=== PATIENT | male | born 1975 | race Caucasian/White ===

== ENCOUNTER 2016-11-07 17:36 | Inpatient (IN) ==
[2016-11-07] MEDS ORDERED: ASPIRIN PO STA (18:16)
[2016-11-07] MEDS ORDERED: TYLENOL PO ONE (18:35)
[2016-11-07] MEDS ORDERED: TYLENOL ONE (18:37)
--- NOTE | 2016-11-07 18:37 | PROVIDER DOCUMENTATION ---
HPI-Chest Pain - General Chief Complaint: Chest Pain Stated Complaint: cp/sob Time Seen by Provider: 11/07/16 18:15 Allergies/Adverse Reactions: Patient Allergies Allergy/AdvReac Type Severity Reaction Status Date / Time clopidogrel [From Plavix] AdvReac Unknown Verified 11/07/16 17:50 warfarin [From Coumadin] AdvReac Unknown Verified 11/07/16 17:50 Home Medications: Home Medication List Medication Instructions Recorded Confirmed Last Taken Type NK [No Home Medications] 11/07/16 11/07/16 Unknown History - History of Present Illness-CP Nature of Presenting Problem: Pt comes in after having 3 days of CP. He has a PMH of CVA and seizure and doesn 't take any of his medications. He states that plavix and coumadin cause suicidal ideation. 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 He did say he will take tylenol for his SRIVASTAVA now but doesn't usually. His pain is midsternal and does not radiate to his back, neck of jaws. Review of Systems - Adult - REVIEW OF SYSTEMS - ADULT Constitutional: reports: no symptoms reported. denies: chills, fever, night sweats, weight gain, weight loss Eyes: reports: no symptoms reported. denies: discharge, dry eyes, decreased vision, blurred vision, double vision, eye pain, redness Ears, Nose, Mouth & Throat: reports: no symptoms reported. denies: ear discharge, hearing loss, tinnitus, epistaxis, nose pain, mouth/dental pain, mouth swelling, hoarseness, throat swelling Cardiovascular: reports: see HPI, chest pain. denies: heart murmur, irregular heart rate, orthopnea, palpitations, poor circulation, PND, syncope Respiratory: reports: no symptoms reported. denies: chronic cough, cough, dyspnea on exertion, hemoptysis, pleurisy, shortness of breath, wheezing Gastrointestinal: reports: no symptoms reported. denies: abdominal pain, hematemesis, constipation, diarrhea, frequent heartburn, nausea, poor appetite, rectal bleeding, vomiting Genitourinary: reports: no symptoms reported. denies: dysuria, discharge, frequency, flank pain, hematuria, incontinence, urinary retention, urgency Musculoskeletal: reports: no symptoms reported. denies: bone pain, back pain, joint pain, joint swelling, muscle aches, muscle weakness, neck pain Integumentary: reports: no symptoms reported. denies: hives, hair loss, itching , nail changes, rash, skin thickening Neurological: reports: see HPI, headache/migraines. denies: ataxia, dizziness/ vertigo, loss of balance, paresthesia, seizure, slurred speech, syncope, tremors Psychiatric: reports: no symptoms reported. denies: anxiety, anti-depressant use, depression, emotional problems, insomnia, panic attacks, suicidal thoughts Endocrine: reports: no symptoms reported. denies: change in skin pigment, excessive sweating, goiter, cold intolerance, heat intolerance, increased thirst , polyuria Hematologic/Lymphatic: reports: no symptoms reported. denies: blood clots, easy bruising, lymphedema, prolonged bleeding, transfusions Allergic/Immunologic: reports: no symptoms reported. denies: allergic reactions , allergic rhinitis, asthma, eczema, food allergy, frequent infections, hay fever, hives, positive PPD, other All Other Systems: Reviewed and Negative Past History - Adult - PAST MEDICAL HISTORY-ADULT Review of Records: reports: Old Records Reviewed, Nursing Assessment Review, Medications Reviewed, Social history reviewed & non-contributory. Major Childhood Illnesses: reports: denies history Cardiovascular: reports: denies history, CAD, HTN Respiratory: reports: denies history Gastrointestinal: reports: denies history Obstetrical/Gynecological: reports: denies history Genitourinary: reports: denies history Musculoskeletal: reports: denies history Neurological: reports: CVA Endocrine/Immune: reports: denies history Other Conditions: reports: denies history - PRIOR SURGERIES/PROCEDURES Surgical/Procedure History: reports: reviewed, not pertinent - IMMUNIZATION STATUS Childhood Immunizations: See Nurse Assessment Flu Vaccine: See Nurse Assessment - FAMILY HISTORY Family History: reviewed, not pertinent - SOCIAL HISTORY Smoking: chew Provider spent 3-5 mins advising pt. on dangers of tobacco.: Discussed manners to quit use, and f/u contacts for add'l counseling. Alcohol Use Frequency: occasionally Number of drinks per typical drinking period:: 2 drinks Living Situation: family Physical Exam-General - PHYSICAL EXAM-ADULT Initial Vital Signs Reviewed: Yes - CONSTITUTIONAL General Appearance: appears well, alert, no apparent distress - EYES Eyes: PERRL/EOMI, pink conjunctivae - HEAD, EARS, NOSE, MOUTH & THROAT HENMT: normocephalic/atraumatic, moist mucous membranes, normal ENT inspection - NECK Neck: non-tender, full range of motion, supple - RESPIRATORY Respiratory: chest non-tender, lungs clear, decreased breath sounds - CARDIOVASCULAR Cardiovascular: normal peripheral pulses, regular rate, rhythm, no edema, no gallop, no JVD, no murmur - GASTROINTESTINAL (ABDOMEN) Abdominal Exam: normal bowel sounds, non tender, soft - MUSCULOSKELETAL Back Exam: normal inspection, no CVA tenderness Extremity: normal range of motion, non-tender, no pedal edema, no calf tenderness, normal capillary refill Peripheral Pulses: dorsalis-pedis (R): 2+, dorsalis-pedis (L): 2+ - SKIN Integumentary: normal color, normal turgor, warm/dry - NEUROLOGIC Neurologic: him manager II-XII nml as tested, grossly normal - PSYCHIATRIC Psych/Mental Status: normal mood/affect, normal thought content, normal thought process, oriented x 3 Progress - PLAN OF CARE/RESULTS Progress/Plan/Lab Results: Vital Signs - 8 hr 11/07/16 17:44 Temperature 98.3 F Pulse Rate 84 Respiratory Rate 16 Blood Pressure 150/87 O2 Sat by Pulse Oximetry 98 Laboratory Results - last 24 hr 11/07/16 11/07/16 11/07/16 18:30 18:30 18:30 WBC 9.72 RBC 4.58 L Hgb 14.5 Hct 41.5 L MCV 90.6 MCH 31.7 H MCHC 34.9 RDW Std Deviation 12.2 Plt Count 204 MPV 10.1 Immature Gran % (Auto) 0.2 Neut % (Auto) 72.4 Lymph % (Auto) 18.5 L [place] % (Auto) 6.9 Eos % (Auto) 1.3 Baso % (Auto) 0.7 Immature Gran # (Auto) 0.02 Neut # (Auto) 7.03 H Lymph # (Auto) 1.80 [place] # (Auto) 0.67 H Eos # (Auto) 0.13 Baso # (Auto) 0.07 PT INR PTT (Actin FS) D-Dimer 0.18 Sodium 140 Potassium 3.8 Chloride 103 Carbon Dioxide 25 Anion Gap 12 BUN 14 Creatinine 0.9 Estimated GFR/1.73 m2 > 60 BUN/Creatinine Ratio 16 Glucose 100 Calculated Osmolality 280 Calcium 8.6 L Magnesium 2.0 Total Bilirubin 0.31 AST 21 ALT 21 Alkaline Phosphatase 57 Creatine Kinase 311 H Creatine Kinase Index 1.7 CK-MB (CK-2) 5.34 H Troponin T Toj-X-Mvsdfugyvyx Pept Total Protein 6.2 L Albumin 3.9 Globulin 2.3 Albumin/Globulin Ratio 1.7 11/07/16 11/07/16 11/07/16 18:30 18:30 18:30 WBC RBC Hgb Hct MCV MCH MCHC RDW Std Deviation Plt Count MPV Immature Gran % (Auto) Neut % (Auto) Lymph % (Auto) [place] % (Auto) Eos % (Auto) Baso % (Auto) Immature Gran # (Auto) Neut # (Auto) Lymph # (Auto) [place] # (Auto) Eos # (Auto) Baso # (Auto) PT 10.3 INR 0.98 PTT (Actin FS) 25.5 D-Dimer Sodium Potassium Chloride Carbon Dioxide Anion Gap BUN Creatinine Estimated GFR/1.73 m2 BUN/Creatinine Ratio Glucose Calculated Osmolality Calcium Magnesium Total Bilirubin AST ALT Alkaline Phosphatase Creatine Kinase Creatine Kinase Index CK-MB (CK-2) Troponin T < 0.010 Kxd-F-Gsentxznnka Pept 24 Total Protein Albumin Globulin Albumin/Globulin Ratio Orders Category Date Time Status Cardiac Monitoring DIRECTED Care 11/07/16 18:16 Active IV Insertion ORDERED Care 11/07/16 19:49 Active Oxygen Therapy- ED Nursing DIRECTED Care 11/07/16 18:16 Active Saline Loc NOW Care 11/07/16 18:16 Active CHEST-2 VIEWS [RAD] Stat Exams 11/07/16 18:16 Taken HEAD W/O CONTRAST [CT] Stat Exams 11/07/16 19:47 Taken CBC WITH ELECTRONIC DIFF [HEME] Stat Lab 11/07/16 18:30 Completed CK PROFILE [SP CHEM] Stat Lab 11/07/16 18:30 Completed CK PROFILE [SP CHEM] Stat Lab 11/07/16 20:05 Received COMPREHENSIVE METABOLIC PANEL [CHEM] Stat Lab 11/07/16 18:30 Completed D-DIMER [CHEM] Stat Lab 11/07/16 18:30 Completed MAGNESIUM [CHEM] Stat Lab 11/07/16 18:30 Completed PRO B-NATRIURETIC PEPTIDE Stat Lab 11/07/16 18:30 Completed PROTIME WITH INR [COAG] Stat Lab 11/07/16 18:30 Completed PTT [COAG] Stat Lab 11/07/16 18:30 Completed TROPONIN T Stat Lab 11/07/16 18:30 Completed TROPONIN T Stat Lab 11/07/16 20:05 Received 0.9% Sodium Chloride Inj [Ns] 1,000 ml Med 11/07/16 19:49 Active IV 999 mls/hr Acetaminophen [Tylenol] Med 11/07/16 18:37 Discontinued 650 mg .ROUTE .STK-MED ONE Acetaminophen [Tylenol] Med 11/07/16 18:35 Discontinued 650 mg PO NOW ONE Aspirin Med 11/07/16 18:16 Discontinued 325 mg PO STAT STA Nitroglycerin Sl [Nitroglycerin] Med 11/07/16 18:16 Active 0.4 mg SL Q5M PRN PRN EKG [EKG] Stat Ther 11/07/16 18:16 Ordered EKG [EKG] Stat Ther 11/07/16 19:50 Ordered Result Diagrams: 11/07/16 18:30 11/07/16 18:30 - CT/MRI 1 CT Study: Head Impression: See EMR Report CT Results: old cva's see EMR study (RAD) - CONSULTS/PCP/HOSPITALIST Notification #1 *Consult/PCP/Hospitalist*: [email or web address] Time Discussed: 20:38 Consult Disposition: Will see in ED, Admit Departure - Departure Date of Disposition Decision: 11/07/16 Time of Disposition Decision: 20:18 DIAGNOSIS: Chest pain Qualifiers: Chest pain type: unspecified Qualified Code(s): R07.9 - Chest pain, unspecified Disposition: HOME 01 Certified Medical Emergency: Emergent Condition: Good Referrals and Follow-Ups: None,PCP [Primary Care Provider] - - Critical Care Note This patient required my direct & personal management of CC.: No Attestation - Physician/ YORDAN Attestation Patient care was provided by Advanced Practice Provider:: Yes Advanced Practice Provider:: [facility] Heart Advanced Practice Provider documentation review:: The Mid-level provider documentation, treatment plan and medical decision making was reviewed by the physician who agrees with all treatment and medical decision making by the MLP.
[2016-11-07 18:39] LABS: MANUAL DIFF NEEDED? NO
[2016-11-07 18:41] LABS: BASO% 0.7 % (0.0-0.8); EOS# 0.13 X1000 (0.0-0.7); EOS% 1.3 % (0.0-10.0); HEMATOCRIT 41.5 % (42.0-52.0); HEMOGLOBIN 14.5 g/dL (14.0-18.0); IMM GRAN# 0.02 X1000 (0.0-0.04); IMM GRAN% 0.2 % (0.0-0.5); LYMPH% 18.5 % (20.5-51.1); MCH 31.7 PG (27-31); MCHC 34.9 g/dL (33-37); MCV 90.6 FL (81-99); MONO# 0.67 X1000 (0.11-0.59); MONO% 6.9 % (1.7-9.3); MPV 10.1 FL (7.4-10.4); NEUT% 72.4 % (42.2-75.2); PLT 204 X1000 (130-400); RBC 4.58 XMIL (4.7-6.1)
[2016-11-07 18:52] LABS: INR 0.98; PROTIME 10.3 Seconds (9.2-11.7); PTT 25.5 Seconds (22.0-36.0)
[2016-11-07 18:57] LABS: AGAP 12; ALBUMIN 3.9 g/dL (3.5-5.0); ALKALINE PHOSPHATASE 57 U/L (32-122); BUN 14 mg/dL (8-22); CALCIUM 8.6 mg/dL (8.8-10.2); CHLORIDE 103 mmol/L (98-107); COSMO 280; GOT 21 U/L (10-34); GPT 21 U/L (10-44); POTASSIUM 3.8 mmol/L (3.5-5.1); SODIUM 140 mmol/L (136-145); TCO2 25 mmol/L (25-35); TOTAL BILIRUBIN 0.31 mg/dL (0.20-1.00); TOTAL PROTEIN 6.2 g/dL (6.3-8.3)
[2016-11-07 19:02] LABS: CK PROFILE 311 U/L (24-204)
[2016-11-07 19:18] LABS: CK INDEX 1.7 (0.0-2.5); CK-MB 5.34 ng/mL (0.0-5.0)
[2016-11-07] MEDS ORDERED: NS 1,000 ML IV ONE (19:49)
[2016-11-07 20:57] LABS: CK INDEX 1.7 (0.0-2.5); CK-MB 5.17 ng/mL (0.0-5.0)
[2016-11-07] MEDS ORDERED: NITROGLYCERIN SL ONE (21:16)
--- NOTE | 2016-11-07 21:36 | ED EKG INTERP ---
This chart was entered by Comfort Junior Scribe, acting as scribe for Emigdio Torres MD. EKG Interpretation - EKG Time of EKG reading by physician:: 17:42 EKG Read and Signed by:: Emigdio Torres EKG Interpretation (*Must complete 3 of following elements*): Normal Rate: 86 Rhythm: NSR Comments: Normal ECG - EKG # 2 Time of EKG reading by physician:: 20:06 EKG Read and Signed by:: Emigdio Torres EKG Interpretation (*Must complete 3 of following elements*): Normal Rate: 66 Rhythm: NSR Comments: Normal ECG This chart was documented by the indicated scribe, (Comfort Junior Scribe) and accurately reflects the services I performed and decisions made by me, Emigdio Torres MD, as attested by the provider's signature.
[2016-11-07] MEDS ORDERED: ZOFRAN IV PRN ×2 (22:13→22:38)
[2016-11-07] MEDS ORDERED: MORPHINE IV PRN (23:32)
[2016-11-08] MEDS: PROTONIX IV SCH ×2 (00:35→22:34)
[2016-11-08] MEDS: SODIUM CHLORIDE 0.9% INJ SCH ×2 (00:35→22:34)
[2016-11-08] MEDS: TYLENOL PO PRN ×2 (00:35→18:37)
[2016-11-08] MEDS: LOVENOX SUBQ SCH ×2 (00:36→22:34)
--- NOTE | 2016-11-08 03:40 | HISTORY AND PHYSICAL ---
TIME: 2199. PRIMARY CARE PHYSICIAN: The patient does not have a primary care physician. CHIEF COMPLAINT: Chest pain. HISTORY OF PRESENT ILLNESS: Mr. Zhang is a 40-year-old, male with a past medical history of hypertension, hyperlipidemia, CVA, and seizures. [facility] complaints of chest pain onset 3 days ago. He reports that his chest pain is intermittent, is tightness in nature, is left substernal, and nonradiating. He reports associated symptoms of dizziness, shortness of breath, and nausea with 1 vomiting episode. The patient reports that his chest pain occurs at different times, when he is at rest and upon exertion. He also complains of chronic headaches that have been ongoing since his stroke in 2008. He reports that he has a headache all the time. He describes it as frontal headache and does report some visual disturbances with blurry vision at times. He also reports that just after his diagnosis of stroke in 2008, he did have 1 seizure and had a 2nd seizure in 2011. After the patient 's stroke in 2008, he was discharged home on Plavix as well as aspirin and blood pressure medication, cholesterol medication, though he reports that the Plavix caused him to have suicidal ideations and he stopped taking this. He reports that he never took his blood pressure medicine or cholesterol medicine due to cost. He reports that since 2008 that he has only seen a physician 1 time and that was an ER visit after he had his 1st his seizure episode. The patient reports that since his stroke that he does have numbness on his right side as well as a slight gait disturbance and does have some short-term memory problems. He also reports that since his stroke that he is unable to be around large crowds and does have issues with some social situations. Upon evaluation in the ER, the patient was found to have slightly elevated cardiacs with a CK of 311, a CK index of 1.7, and a CK-MB of 5.34. His troponin was less than 0.01. His EKG showed normal sinus rhythm at a rate of 86 with a QTc of 414. At this time, the patient still is experiencing some intermittent chest pain. At this time, we will admit him for further treatment and evaluation of his chest pain. REVIEW OF SYSTEMS: Twelve point review of systems was conducted with the patient. All were negative except for pertinent positives mentioned above in the HPI. PAST MEDICAL HISTORY: 1. Hyperlipidemia. 2. Hypertension. 3. History of CVA in 2009 with residual right-sided numbness, gait disturbance, and short-term memory loss. 4. Seizures. 5. Previous finding of a thyroid nodule during his admission in 2008 for which the patient states that he was supposed to follow up with Dr. Monsalve with surgery, though has not done so. PAST SURGICAL HISTORY: Left foot surgery. SOCIAL HISTORY: The patient currently lives with his at this time. He works on a horse farm with walking horses. He is a former smoker, stating that he smokes 1/3 pack a day for approximately 3 years, though quit approximately 15 years ago. He denies any alcohol or illicit drug use. FAMILY HISTORY: Positive for his father passing away with a heart attack at the age of 62. His mother has a history of hypertension and diabetes. He does have 1 sister who is healthy. ALLERGIES: The patient has no known allergies, though he did list Plavix and Coumadin as allergies on his medical record due to he states that when he took these medications, they caused him to have suicidal ideations. HOME MEDICATIONS: Patient denies any prescription medicines or over-the- counter medication use. DIAGNOSTIC DATA/LABORATORY RESULTS: White blood cell count 9.72, hemoglobin 14.5, hematocrit 41.5, platelet count is 204,000. PT 10.3, INR 0.98, PTT 25.5, D-dimer is 0.13. Sodium 140, potassium 3.8, chloride 103, bicarb 25, BUN 14, creatinine 0.9, glucose 100, calcium 8.6, magnesium is 2. Liver function tests within normal limits. CK was 311, CK index 1.7, CK-MB was 5.34, troponin was less than 0.01. ProBNP was 24. A chest x-ray shows no acute abnormality, though we are awaiting the official radiology over-read. Head CT, noncontrast, showed old occipital infarcts and cerebellar lacunar infarcts. There was no acute pathology noted. This was per radiology. EKG showed normal sinus rhythm at a rate of 86 with a QTc of 414. PHYSICAL EXAMINATION: VITAL SIGNS: Temperature 97.8 degrees, heart rate 61, respirations 17, blood pressure 138/79, oxygen saturation is 100% on nasal cannula at 2 L. GENERAL: Mr. Zhang is a pleasant, 40-year-old, , male who is resting comfortably on the ER stretcher. He was in no acute distress. He was awake, alert, and able to answer all questions appropriately. HEENT: Head is atraumatic, normocephalic. Pupils are equal, round, reactive to light, were 3 mm bilaterally and brisk. Oral mucosa was moist. Oropharynx was clear. NECK: Supple. Trachea midline. No carotid bruits noted upon auscultation bilaterally. No JVD noted. CARDIOVASCULAR: Patient has normal S1 and S2. No murmurs, gallops, or rubs appreciated, with a regular rate and rhythm. PULMONARY: Patient has symmetrical chest expansion bilaterally. Lung sounds are clear to auscultation in bilateral full michelle. ABDOMEN: Soft, nontender, nondistended. Bowel sounds are present in all 4 quadrants and normoactive. EXTREMITIES: No cyanosis, clubbing, or edema noted. Pulse, motor, and sensory were intact in all extremities. Pedal pulses are 3+ bilaterally. INTEGUMENTARY: Patient's skin is pink, warm, dry, and intact. No lesions or sores noted. NEUROLOGICAL: Patient is alert and oriented x4. Upon examination, the patient does have a slight tremor noted to his right hand with arm extension. There is no facial droop noted. He has equal muscle strength bilaterally. No arm drift noted as well. cranial nerves 2-12 appear to be grossly intact. ASSESSMENT AND PLAN: 1. Chest pain, rule out acute coronary syndrome. We will do a series of cardiac enzymes as well as repeat an EKG in the morning. We have consulted cardiology and we will await their evaluation and further recommendations as well. We will go ahead and place him on aspirin 81 mg by mouth daily and place him on telemetry. We will monitor his cardiac status closely. We have ordered for the patient to receive nitroglycerin if needed for chest pain as well as morphine as well. 2. Hypertension. We have placed the patient on Norvasc 5 mg by mouth daily. 3. Hyperlipidemia. We have placed the patient on Zocor 20 mg by mouth at bedtime. 4. History of cerebrovascular accident. As previously mentioned, the patient has not been taking his medications since he was first diagnosed with a stroke in 2008. As previously mentioned, we have implemented antihypertensive and antilipemic medications. We have also placed him on aspirin 81 mg by mouth daily. Patient's CT of the head performed in the emergency room showed no acute findings. We have placed him on neurological checks every 4 hours since the patient does complain of a chronic headache and have placed a neurology consult as well. We will await Dr. Oakes's evaluation and further recommendations. 5. Seizures. The patient does report a previous history of seizures since his stroke in 2008. We would recommend possible placement of medications for prevention of this, though we have placed a neurology consult. We will await their evaluation and recommendations for management as well. 6. The patient will be placed on the medical floor with telemetry. He will have vital signs every 4 hours. Deep venous thrombosis prophylaxis provided with Lovenox 40 mg subcutaneously every 24 hours. Gastrointestinal prophylaxis provided with Protonix 40 mg intravenous every 24 hours. He will be on a heart healthy diet but will be nothing per oral after midnight for a lipid profile, as well as a cardiology consult in the morning. We have placed a social staff worker consult for assistance with the patient finding a primary care physician as well as being able to obtain his prescription medicines. We did decide to place him on Norvasc, given that it can obtain free from [employer], as well as Zocor which is a relatively low cost medication also. In 2008, the patient did have a thyroid ultrasound that showed an indeterminate nodule in the left lobe of the thyroid. Radiology reported that, on sonographic appearance, this is a particularly worrisome nodule and a biopsy or surgical removal was recommended. The patient was referred to Dr. Monsalve upon discharge for followup in 1 week, though the patient states that he had never followed up for this. We have placed a thyroid ultrasound for further evaluation of this and we will continue to follow. Further orders and recommendations pending hospital course, diagnostic studies, and physician evaluation. Dictated by CARI Ferreira for Leigh Hernandez MD Seen and examined pt and discussed plan of care with SULFIDE HEAD OPERATOR. cc: MD LENY Renner
[2016-11-08] MEDS: ASPIRIN EC PO SCH ×2 (05:13→10:46)
--- NOTE | 2016-11-08 05:24 | EKG Report ---
Test Performed on : 11/07/2016 5:42:39 PM Test Reason : Chest Pain Blood Pressure : / mmHG Vent. Rate : 086 BPM Atrial Rate : 086 BPM P-R Int : 138 ms QRS Dur : 078 ms QT Int : 346 ms P-R-T Axes : 019 046 020 degrees QTc Int : 414 ms Normal sinus rhythm. Normal ECG When compared with ECG of 11-APR-2009 22:41, premature ventricular complexes. are no longer present premature supraventricular complexes. are no longer present T wave inversion less evident in Inferior leads T wave inversion no longer evident in Lateral leads Unconfirmed Result
--- NOTE | 2016-11-08 05:25 | EKG Report ---
Test Performed on : 11/07/2016 8:06:24 PM Test Reason : CP Blood Pressure : / mmHG Vent. Rate : 066 BPM Atrial Rate : 066 BPM P-R Int : 138 ms QRS Dur : 072 ms QT Int : 386 ms P-R-T Axes : 021 030 023 degrees QTc Int : 404 ms Normal sinus rhythm. Normal ECG When compared with ECG of 07-NOV-2016 17:42, (Unconfirmed) No significant change was found Unconfirmed Result
[2016-11-08 05:55] LABS: MANUAL DIFF NEEDED? NO
[2016-11-08 05:57] LABS: BASO% 1.1 % (0.0-0.8); EOS# 0.27 X1000 (0.0-0.7); EOS% 3.8 % (0.0-10.0); HEMOGLOBIN 14.1 g/dL (14.0-18.0); LYMPH% 32.1 % (20.5-51.1); MCH 31.5 PG (27-31); MCHC 34.4 g/dL (33-37); MCV 91.7 FL (81-99); MONO# 0.53 X1000 (0.11-0.59); MONO% 7.4 % (1.7-9.3); MPV 10.2 FL (7.4-10.4); NEUT% 55.6 % (42.2-75.2); PLT 180 X1000 (130-400); RBC 4.47 XMIL (4.7-6.1)
[2016-11-08 06:34] LABS: AGAP 11; BUN 13 mg/dL (8-22); CALCIUM 8.6 mg/dL (8.8-10.2); CHLORIDE 107 mmol/L (98-107); COSMO 286; POTASSIUM 3.9 mmol/L (3.5-5.1); SODIUM 143 mmol/L (136-145); TCO2 25 mmol/L (25-35)
[2016-11-08] MEDS: NITROGLYCERIN SL PRN ×3 (07:00→07:15)
--- NOTE | 2016-11-08 07:03 | EKG Report ---
Test Performed on : 11/08/2016 06:25:52 AM Test Reason : Chest Pain Blood Pressure : / mmHG Vent. Rate : 054 BPM Atrial Rate : 054 BPM P-R Int : 142 ms QRS Dur : 078 ms QT Int : 416 ms P-R-T Axes : 003 033 036 degrees QTc Int : 394 ms Sinus bradycardia. Otherwise normal ECG When compared with ECG of 07-NOV-2016 20:06, No significant change was found Confirmed by Braden NGUYEN, Eduardo Cook ([id number]) on 11/12/2016 12:36:46 PM
--- NOTE | 2016-11-08 07:29 | Diag Imaging Result Doc PS360 ---
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 There are lacunae present in the right cerebellar hemisphere and left thalamus. There is no evidence of bleed, mass effect, or hydrocephalus. There are no previous studies available for comparison. Some mucosal thickening is present in the right maxillary sinus. There is no evidence of acute bony disease. IMPRESSION: Old left occipital infarct and microvascular changes. No evidence of acute disease. Electronically signed by Lui Alicia 11/08/2016 7:27 AM
--- NOTE | 2016-11-08 07:31 | EKG Report ---
Test Performed on : 11/08/2016 07:08:15 AM Test Reason : chest pain Blood Pressure : / mmHG Vent. Rate : 061 BPM Atrial Rate : 061 BPM P-R Int : 146 ms QRS Dur : 086 ms QT Int : 406 ms P-R-T Axes : 010 046 049 degrees QTc Int : 408 ms Normal sinus rhythm. Normal ECG When compared with ECG of 08-NOV-2016 06:25, (Unconfirmed) No significant change was found Confirmed by Braden NGUYEN, Eduardo Cook ([id number]) on 11/12/2016 12:37:02 PM
--- NOTE | 2016-11-08 07:49 | Diag Imaging Result Doc PS360 ---
CHEST-2 VIEWS - 11/07/2016 INDICATION: CP TECHNIQUE: COMPARISON: None FINDINGS: The lungs are normally expanded and clear. Heart size and mediastinal contours are normal. No pneumothorax or pleural effusion. IMPRESSION: Negative exam. Electronically signed by Celestine Lantigua 11/08/2016 7:47 AM
[2016-11-08 09:08] LABS: FREE T4 1.14 ng/dL (0.93-1.70)
--- NOTE | 2016-11-08 10:21 | PROGRESS NOTE ---
DATE: 11/08/2016 SUBJECTIVE: Today, Mr. Zhang refers to be doing fine. Mr. Zhang got admitted earlier on today because of on and off history of chest pain for the past 3 days. According to him, this chest pain has been going on even longer than that. He is a very poor, non-focalized historian who wants to be talking about everything when you even ask him specifically about this chest pain. He keeps saying that he has very bad anxiety and that he had a stroke in 2007 and seizures, that he does not follow up with any physician. OBJECTIVE: Vital Signs: Blood pressure is 123/83, pulse of 58, respirations are 17, temperature is 97.4 degrees. Patient is saturating 100% on room air. General Examination: Mr. Zhang is a 40- year-old, male. He is in bed. He did not seem to be in any distress. HEENT: Mucosa is pink and moist. Anicteric. Acyanotic. Neck: Supple. Chest: Good air entry bilaterally. No crepitations. No rhonchi. Mild tenderness to costochondral joint on palpation. Cardiovascular: Regular rate and rhythm. Abdomen: Soft and nontender. Extremities: No pedal edema. STONE CUTTER: Patient is alert, awake. No focal neurological deficit despite the fact that the patient seems to be having difficulty with the right side. However, whenever you take his attention of his power, it is normal. Laboratory Data: WBC is 7.16, hemoglobin is 14.1, platelet count of 180,000. Chemistries reviewed, completely normal. Lipid panel is normal. TSH and free T4 are completely normal. Diagnostic Studies: A CT scan of the head which was done yesterday shows an old left occipital infarct and microvascular changes. A chest x-ray done this morning shows negative. ASSESSMENT: 1. Atypical chest pain. 2. 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 3. Anxiety with depression and panic attacks. 4. Mild obesity with a body mass index of 31. 5. Mild costochondritis. PLAN: In general, Mr. Zhang seems to be doing relatively fine. We will going to complete the ischemic workup. So far, troponins and EKGs have been unremarkable. so acute coronary syndrome has been ruled out. However, the patient has family members with a lot of coronary artery disease and also has a past medical history of an old CVA which puts him, at 40 years old, at a higher risk for atherosclerotic burden. We will therefore go ahead and do a stress test to make sure that this chest pain is not cardiac in origin. We will also do an echocardiogram to look at the valves. We will continue with the current medications as outlined in the EMR. We will start the patient on p.r.n. doses of Xanax for panic attacks and an SSRI for long-term management. Patient has been advised to follow up with a counselor/psychiatrist or psychologist for the anxiety and depression disorder. cc: Darius Cosme MD
[2016-11-08] MEDS: NORVASC PO SCH (10:46)
--- NOTE | 2016-11-08 11:52 | CONSULTATION ---
DATE OF CONSULTATION: 11/08/2016 PRIMARY PHYSICIAN: None. CHIEF COMPLAINT: Chest pain. HISTORY: Mr. Zhang is a 40-year-old gentleman who presented to the hospital with recurrent episodes of left anterior chest discomfort. The pain is located around the left breast, is nonpleuritic, essentially worsened to some extent by exercise. He says that he first noted this pain about 4 days ago, and since then it has been recurrent and becoming more intense. He decided to seek medical evaluation. In the ER, they did an electrocardiogram that shows no acute changes. His total CK was elevated at 311, and then it has come down to 190. The index is 1.7. Multiple troponins have been checked, and all 3 of them are negative. EKG has remained normal. proBNP has been checked and is normal. C-reactive protein is normal. A D- dimer is normal. His white count was also normal. The patient says that the pain has improved. He denies having any dyspnea, no swelling, no claudication, no palpitations. PAST HISTORY: He has been told that he has hypertension. He has also been told that he has hyperlipidemia. Back in 2008, he suffered a stroke around April of that year. He presented April 11, was discharged on April 15. MRI of the brain showed a large recent left-sided infarct involving the thalamus, posterior horn of the internal capsule and occipital lobe. They did an MR of the brain that showed no significant vascular abnormalities other than a small left posterior cerebral artery. He was seen by Neurology, Dr. Vito Cervantes, who diagnosed a left hemispheric stroke with right- sided weakness. He suspected migraine as a possible etiology. Echocardiogram was done at that time, which actually I read. It showed normal left ventricular function with a mild degree of mitral regurgitation. The right ventricle appeared to be moderately enlarged. ADDITIONAL HISTORY: He has had seizures. He has had foot surgery. SOCIAL HISTORY: He lives with his girlfriend for the past 6 months. He has 2 grownup children ages 17 and 18. They live with the patient's mother. He quit smoking a long time ago. He chews some tobacco. He does not use any alcohol. FAMILY HISTORY: Father had a heart attack in his 60s. ALLERGIES: Negative. HOME MEDICATIONS: None. REVIEW OF SYSTEMS: He has some limitation to perform physical action because of previous stroke with some residual weakness on the right side. Otherwise, he raises horses, works on a farm. He walks without much limitation. PHYSICAL EXAMINATION: Vital signs: Today blood pressure is 132/81, pulse 63, respirations 16, temperature 97.4. General: He is awake, alert, oriented, in no distress. HEENT: Unremarkable. Chest: Clear to auscultation and percussion. Cardiac: Heart sounds are regular and rhythmic, no gallop or murmur. Abdomen: Nontender, soft, no masses, no hepatomegaly. Extremities: Good pulses, no pedal edema. Neurological: Basically, he has no obvious gross deficit. BLOOD WORK: BUN and creatinine are normal. Sodium/electrolytes normal. Lipid panel has been checked--cholesterol 106, LDL 59, triglycerides 106, HDL 38. IMPRESSION: 1. The patient presented with chest pain that sounds atypical. 2. History of previous cerebral infarct involving the thalamus on the left side with right-sided weakness. Etiology unclear.This historical fact may increase his chances of having Coronary artery disease significantly. 3. Chronic headache. 4. History of seizures. RECOMMENDATION: We will request an echocardiogram with injection of agitated saline to exclude patent foramen ovale, and we will obtain a walking Lexiscan myocardial perfusion study. Further advice will be forthcoming. cc: Chris Bragg MD MTDD
--- NOTE | 2016-11-08 12:01 | CONSULTATION ---
DATE OF CONSULTATION: 11/08/2016 The patient is seen in consultation at the request of Dr. Cosme for evaluation of headaches and history of stroke and seizures. HISTORY OF PRESENT ILLNESS: The patient is a 40-year-old, right-handed male with a history of stroke and seizures as well as headaches who is admitted with atypical chest pain. He had a stroke in 2008 with residual mild right-sided focal findings. Review of his chart shows that he was hospitalized here for this, seen by Dr. Cervantes, and discharged on aspirin 81mg, plavix and lipitor. MRI showed a large, subacute infarct involving the thalamus, posterior limb of internal capsule, and occipital lobe, all on the left side. Cranial MRA showed only that the left RAW SAMPLER was smaller and with fewer branches compared to the right. Echo was unrevealing. Antithrombin III, Protein C and S, and antiphospholipid abs were all negative. At some point he reports having been briefly placed on coumadin but the reason is unclear. He reports he discontinued it as well as plavix because they caused suicidal ideations. He has not had any further stroke symptoms. He does report having had a seizure 3- 6 months after the stroke and was evaluated at an outside facility. He had a 2nd event that he believes was a seizure a couple of years later, though he did not seek evaluation. He has not had any further events since 2009. He is not taking any seizure medications. In fact, he reports being fearful of taking any medications at all and also reports that he does not like to see doctors or go to the hospital because he does not have any insurance and would not be able to pay for the services. He is not currently taking any medications at all at home. He also reports having chronic daily headache of the tension type nonstop since he was about 13 years old. There is no headache-free time. He does not take anything for this. He reports a moderate intake of caffeine. No fevers, chills. He did complain of some chest pain which is why he came in. No stomach pain. He complains of chronic tremor of his right arm and mild weakness on the right arm and leg since the stroke in 2008. He says he at times feels depressed. He reports anxiety and panic attacks. REVIEW OF SYSTEMS: Balance of ten was conducted and is otherwise negative except that detailed in the HPI. PAST MEDICAL HISTORY: Notable for stroke in 2007, reports of seizure x2- one in 2007 and 2009, none since. Hypertension, hyperlipidemia, thyroid nodule and chronic headaches. SOCIAL HISTORY: He lives with his fiancee in [place]. He works on a farm. He smoked many years ago. None currently. He has a rare beer from time to time. He reports occasional marijuana use. The last time was 3 weeks ago. Chart review from 2008 showed toxicology was positive for marijuana also. FAMILY HISTORY: Positive for hypertension, diabetes and heart disease. ALLERGIES: He reports Plavix and Coumadin causing suicidal ideations. HOME MEDICATION: None. CURRENT MEDICATIONS: Aspirin 81 mg. Simvastatin 20 mg. Norvasc 5 mg. He has also been started on p.r.n. Xanax as well as Lexapro. PHYSICAL EXAMINATION: Vital Signs: Afebrile. Blood pressure 123 to 132 over 80s, pulse 53, respirations 18, 100% on room air. General: He is in no acute distress. Sitting up in bed. His fiancee is at bedside. Both of them provide history. He is cooperative. Seems anxious. Neck: Supple. Cardiovascular: Regular rate and rhythm. No murmurs are appreciated. Lungs: Clear to auscultation anteriorly. Abdomen: Soft, nontender. Extremities: Warm and well perfused without edema. Psych: He seems anxious. Neurologic Exam: Mental status: He is awake , alert, fully oriented. Speech is fluent. Attention and concentration are intact. He has no language disturbance. Cranial nerves: His pupils are equal, round, react to light. Extraocular movements are intact. Gaze is conjugate. Face is symmetric with equal activation. Facial sensation is intact. Tongue protrudes midline. Palate elevates symmetrically. Shoulder shrug is full. Motor exam: No pronator drift. There is probably very slight weakness on the right side compared to the left. Sensory exam: he reports diminished on the right arm and leg as compared to the rest. Coordination: His rapid alternating movements, and finger taps are symmetric. His [id number] is dysmetric on the right. DIAGNOSTIC: A noncontrast head CT this admission was personally reviewed. There are no acute findings. It does show an old left occipital infarct and microvascular changes in the right cerebellar hemisphere left thalamus. Chest x-ray was unremarkable. EKG most recently was normal sinus rhythm and normal EKG. LABORATORY: White count 7.2, hemoglobin 14, hematocrit 41, platelets 180,000. Chemistry panel: Sodium 143, potassium 3.9, BUN 13, creatinine 0.8, glucose 108. LDL 59. HDL 38. ASSESSMENT AND PLAN: This is a 40-year-old, right-handed male with remote history of stroke and seizure, hypertension, hyperlipidemia who was admitted with atypical chest pain. He also reports a longstanding history of chronic daily headache of the tension type since he was 13 years of age. No acute findings on a head CT this admission, though there is mention of old ischemic changes in the right cerebellar hemisphere which was not reported on the MRI in 2008. Would not know when this occurred; could have been around the time of his stroke in 2008. If so , it is possible that a dissection at that time was the cause of his remote stroke. Hypercoagulable workup was done per HPI, given his young age and stroke , and was negative, though I did not see a prothrombin/Factor II, lupus anticoagulant/inhibitor, or factor V leiden. Would consider checking these. I see he is scheduled for echo. I agree with low-dose aspirin and a statin. Adequate blood pressure management would also be indicated for secondary stroke prevention. For his longstanding daily tension type headaches, amitriptyline would be a good treatment for this and may also be good for any underlying depression, provided he is doesn't have cardiac conduction abnormalities. I see he has been started on an SSRI already though. Thus I think it is reasonable to try topirimate generic for his history of seizures which may also help the headaches. Would start at 25mg po bid x 1 week, then 50mg bid x 1 week, then 75mg bid x 1 week then 100mg bid. Could titrate up slower, say every two weeks given his propensity for side effects when he takes medications and also due to his reluctance to be on medications in general. I also counseled him on behavioral changes that he could make which could help with the headaches since I am concerned that he may not continue his medications, regardless, as he has done in the past. He reports he is hesitant even today although willing to try medications again. I have counseled him on this and the importance of taking his medications and at least discussing with his physician before discontinuing them. He also reports anxiety and depression and panic attacks and is interested in seeing a psychiatrist for this because he says it has gotten so bad. I would recommend a referral for him to be evaluated. Thank you for this consultation. cc: Anahy Mercer MD MTDD
[2016-11-08] MEDS ORDERED: LEXISCAN ONE (12:26)
--- NOTE | 2016-11-08 14:22 | Diag Imaging Result Doc PS360 ---
US SOFT TISSUE HEAD NECK - 11/08/2016 INDICATION: Further eval. of previous L lobe thyroid nodule TECHNIQUE: COMPARISON: None FINDINGS: There is a densely rim calcified nodule at the mid pole of the left lobe of the thyroid. This measures about 1.2 x 1.2 cm. No other nodules. Background thyroid echotexture is homogeneous. The right lobe measures 4.5 x 1.5 x 2.1 cm. The left lobe measures 4.6 x 1.9 x 1.4 cm. IMPRESSION: Relatively densely calcified nodule in the left lobe of the thyroid gland, nonspecific. Electronically signed by Celestine Lantigua 11/08/2016 2:20 PM
--- NOTE | 2016-11-08 15:14 | Diag Imaging Result Document ---
PROCEDURE NAME: MYOCARDIAL PERF SCAN, STR/REST - 11/08/2016 STUDY: Lexiscan Cardiolite stress test. Lexiscan was infused per standard protocol. The patient had chest discomfort during Lexiscan infusion. Stress electrocardiogram was negative for ischemia. Chest discomfort resolved spontaneously. Then 14.8 mCi of Cardiolite was injected for the rest phase; 45.3 mCi of Cardiolite was injected for the stress phase. Gated SPECT images were obtained in standard views. Images revealed significant GI interference as well as diaphragmatic attenuation. There is chest wall attenuation as well. There is low-grade fixed defect in the left ventricular apex with normal wall motion. This is likely to represent attenuation defect. In addition, there is significant GI interference in the inferior wall. There is low-grade reversibility in the base of the inferior wall with significant GI interference. This is likely to represent attenuation defect. Low probability of ischemia. Would recommend clinical correlation. Left ventricular ejection fraction was 62%. Wall motion was normal. Left ventricular cavity size was normal. CONCLUSIONS: 1. Negative Lexiscan stress electrocardiogram. 2. Myocardial perfusion images revealed significant GI interference and chest wall attenuation. There is a low-grade, fixed defect in the left ventricular apex. This is likely to represent attenuation defect. Low probability of scar. 3. There is small-sized low-grade reversibility in the base of the inferior wall. However, there is significant GI interference and diaphragmatic attenuation. This is likely to represent attenuation defect as well. Would recommend clinical correlation. 4. Left ventricular ejection fraction 62%. 5. Wall motion was normal. cc: MD Chris Pandey MD
[2016-11-08] MEDS: ZOCOR PO SCH ×2 (19:50→23:15)
[2016-11-08] MEDS: XANAX PO SCH ×2 (19:50→23:16)
[2016-11-08] MEDS: LEXAPRO PO SCH ×2 (19:50→23:15)
--- NOTE | 2016-11-09 09:42 | PROGRESS NOTE ---
DATE: 11/09/2016 CHIEF COMPLAINT: Chest pain. SUBJECTIVE: Mr. Zhang is feeling better as far as the chest pain goes. He still has some recurrent headache. The patient was seen by neurologist yesterday. Please review her recommendations. All of his troponins have been negative. Of note, his first CPK was 311 at the time of initial encounter, then it dropped to 299, 190, and 140. That suggests musculoskeletal strain or injury. The patient tells me that a day or two prior to being admitted to the hospital he was picking up multiple ja of hay. He said that he lifted himself about 250 ja of hay, each one weighing 75 pounds. He tends to use his left arm more than the right since the stroke. He is tender to palpation at the level of the left pectoralis muscle. OBJECTIVE: Vital signs: Blood pressure 132/77, temperature 97.8, respirations 20, pulse 48. Telemetry over the past 24 hours shows no evidence of any arrhythmia. HEENT: Normal. Chest: Clear to auscultation and percussion. Cardiac: Heart sounds are regular and rhythmic. I do not hear any gallop or murmur. Abdomen: Nontender, soft, no masses, no hepatomegaly. Extremities: Good pulses, no peripheral edema. Neurological: I cannot find any definite deficit on him. Cranial nerves are normal. BLOOD WORK: Sodium 143, potassium 3.9, BUN 13, creatinine 0.8. His LDL cholesterol was checked and is 59, which is pretty acceptable. HDL is 38. TSH was normal. Echocardiogram done yesterday which I have reviewed shows normal left ventricular ejection fraction. Agitated saline was injected to exclude the possibility of patent foramen ovale. However, the test, unfortunately, is of very poor quality, and all I can say is that there is no obvious gross crossing of bubbles from right to left. Otherwise, the echocardiogram is unremarkable. A walking Lexiscan myocardial perfusion stress test was carried out yesterday, and in my opinion, it showed no electrocardiographic abnormalities and also no perfusion abnormalities that would suggest the presence of coronary heart disease. I have reviewed that study myself. IMPRESSION: 1. Patient has probably chest wall pain. He had tenderness to palpation of the left major pectoralis muscle in its inferior aspect under the breast. His stress test is negative. His lipid panel is optimal 2. Recurrent chronic headache. Neurology has evaluated the patient and has provided recommendations. 3. History of previous stroke involving the left thalamic area. 4. Suspected patent foramen ovale. Unfortunately, echocardiogram is less than optimal. At this point in time, we will not pursue any further testing, since that probably does not relate to the patient's presenting complaint of chest pain. RECOMMENDATION: From cardiology viewpoint, I do not have any further advice. The patient needs to follow up with primary medical care provider. I would try to adhere to the recommendations given by Dr. Mercer from Neurology. The patient may be discharged from my viewpoint. I suggested to try heating pads for the discomfort in the left anterior chest which is reproducible by palpation, and as I said, probably relates to muscle strain from his intense labor reported a day or two prior to admission. cc: Chris Bragg MD
--- NOTE | 2016-11-09 09:48 | ECHO REPORT ---
ORDER DATE: 11/08/2016 ECHOCARDIOGRAPHIC MEASUREMENTS: 1. Interventricular septum 0.6, left ventricular posterior wall 0.6, diastolic diameter 5.8, left atrium 4, aorta 3.8. Aortic valve leaflets are trileaflet. Tricuspid valve was normal. Pulmonic valve was normal. 2. Normal left ventricular cavity size. Estimated ejection fraction of 60%. 3. Doppler studies revealed there is no aortic stenosis or regurgitation. There is mild mitral regurgitation. Trace to mild tricuspid regurgitation. Peak velocity across the tricuspid valve was 2 m/sec. There is no pericardial effusion or obvious intracardiac mass or thrombus seen. 4. Saline contrast study was negative for patent foramen ovale. cc: MD Darius Pandey MD
[2016-11-09] MEDS: NORVASC PO SCH (11:16)
[2016-11-09] MEDS: ASPIRIN EC PO SCH (11:16)
[2016-11-09] MEDS: XANAX PO SCH (11:16)
[2016-11-09 11:20] VITALS: BP 133/89
--- NOTE | 2016-11-09 16:01 | DISCHARGE SUMMARY ---
ADMISSION DATE: 11/08/2016 DISCHARGE DATE: 11/09/2016 CONSULTATIONS: 1. Dr. Chris Bragg with Cardiology. 2. Anahy Mercer MD with Neurology. PERTINENT PROCEDURES: 1. Head CT showed old left occipital infarct, microvascular changes. No evidence of acute disease. 2. Head and neck ultrasound showed relatively densely calcified nodule in the left lobe of the thyroid gland. Nonspecific. 3. Echocardiogram showed an EF of 60%. 4. Lexiscan was negative. DISCHARGE DIAGNOSES: 1. Atypical chest pain secondary to chest wall pain. The patient has tenderness to palpation of the left major pectoralis muscle and inferior aspect under the breasts. Stress test was negative. Liver panel is optimal. 2. Recurrent chronic headaches, evaluated by Neurology. Initiated topiramate as well as counseled on behavioral changes that could help with his headaches. Counseled on the importance of taking his medications and discussing with his physician before discontinuing any of them. 3. Anxiety and depression, panic attacks. The patient has been advised to follow up with a counselor or psychiatrist. 4. Mild obesity with a BMI of 31. Patient counseled on diet and exercise. HOSPITAL COURSE: Mr. Zhang is a 40-year-old male with a past medical history of hypertension, hyperlipidemia, CVA and seizures presented to the ED with complaints of chest pain for 3 days that was intermittent, tightness in nature, substernally on the left, nonradiating. Reported associated dizziness, shortness of breath and nausea with one episode of vomiting. He reported that the chest pain occurs at different times when he is at rest and exertion. Also complains of chronic headache going on since his stroke since 2008. After the patient's stroke, he was sent home on Plavix and aspirin as well as blood pressure medications and cholesterol medications, though he reports the Plavix caused him to have suicidal ideations, so he stopped taking that. He never took his blood pressure medicine or any cholesterol medicine due to cost. Since 2008, he has only seen 1 physician and that was in an ER for his 1st seizure in 2011. The patient was admitted for atypical chest pain to rule out any acute coronary syndrome. He had serial cardiac enzymes that were negative. He underwent a negative stress test that was deemed he had costochondritis. He was also evaluated by Neurology for his chronic headaches. She started him on topiramate although he was hesitant to take any medications. She did education counselor him on the need to take his medicines and to speak with his physician before stopping any of them. He also reported anxiety and depression with panic attacks. He has been recommended that he seek outpatient treatment to talk to a psychiatrist or counselor. The patient is appropriate and stable for discharge today. Vital signs, temperature is 97.8 degrees, heart rate 48, respirations 20, blood pressure is 132/77, O2 is 97% on room air. DISCHARGE DIET: Healthy heart. DISCHARGE MEDICATIONS PER DR. RICO: 1. Aspirin 81 mg p.o. daily. 2. Prozac 20 mg p.o. daily. 3. [place] 5/325, 1 each p.o. q.4 q.6 hours p.r.n. 4. Prinivil 20 mg p.o. daily. 5. Mevacor 20 mg p.o. with supper. 6. Topamax 25 mg p.o. as directed. The patient will take 1 tablet p.o. b.i.d. for 1 week, then 2 tablets p.o. b.i.d. for 1 week, then 3 tablets p.o. b.i.d. for 1 week, then 4 tablets p.o. b.i.d. continuously. FOLLOWUP: Mr. Zhang is being discharged home. He will follow up outpatient basis with a counselor for his anxiety, depression and panic attacks. The patient has been strongly encouraged to continue taking all home medications, taking them properly and to speak with his physician before he discontinued them, as well as weight loss, diet and exercise. The patient can return to the ED for any worsening of symptoms. Dictated by CARI Estes for Arturo Higginbotham MD cc: Arturo Higginbotham MD
== END 2016-11-09 12:00 | disposition home or self-care (01) ==
LOC: ED 17:36 → SUATTDRO 22:55 → 4N 22:55
PROVIDERS: ATTEND Internal Medicine